=== PATIENT | male | born 1980 | race Hispanic/Latino ===

== ENCOUNTER 2016-06-19 09:26 | Emergency (ER) | payer OTHER ==
[~2016-06-19] VITALS: Ht 170.2 cm; Wt 72.0 kg
[2016-06-19 10:10] VITALS: BP 134/77
[2016-06-19] MEDS ORDERED: TOBRAMYCIN0.3 % OP (10:12)
== END 2016-06-19 10:30 | disposition home or self-care (01) | DRG 115 ==
LOC: ED 09:26
PROC: 08C9XZZ Extirpation of Matter from Left Cornea, External Approach (ICD-10-PCS; principal; 2016-06-19)
DX: T15.02XA Foreign body in cornea, left eye, initial encounter (principal); X58.XXXA Exposure to other specified factors, initial encounter